=== PATIENT | male | born 1980 | race Caucasian/White ===

== ENCOUNTER 2018-08-16 15:41 | Inpatient (IN) | payer OTHER ==
[~2018-08-16] VITALS: Ht 177.8 cm; Wt 93.4 kg
[2018-08-16 17:37] LABS: BASO # 0.1 10*3/uL (0.0-0.1); BASO % 0.6 % (0.0-1.0); EOS % 0.1 % (1.0-4.0); HEMATOCRIT 45.5 % (42.0-52.0); HEMOGLOBIN 15.1 g/dl (14.0-18.0); LYMPH # 2.1 10*3/uL (1.3-4.4); LYMPH % 17.7 % (27.0-41.0); MEAN CELL VOLUME 92.3 fl (80.0-94.0); MEAN CORPUSCULAR HGB 30.6 pg (27.0-31.0); MEAN CORPUSCULAR HGB CONC 33.2 g/dl (33.0-37.0); MEAN PLATELET VOLUME 10.3 fl (9.6-12.3); MONO # 0.9 10*3/uL (0.1-1.0); NEUT # 8.6 10*3/uL (2.3-7.9); NEUT % 73.4 % (47.0-73.0); PLATELET COUNT AUTOMATED 398 10*3/uL (130-400); RED BLOOD COUNT 4.93 10*6/uL (4.50-5.90); RED CELL DISTRI WIDTH 13.4 % (0-14.5); WHITE BLOOD COUNT 11.7 10*3/uL (4.8-10.8)
[2018-08-16] MEDS ORDERED: OMEPRAZOLE D/R20 MG PO (17:41)
[2018-08-16] MEDS ORDERED: PROAIR HFA8.5 GM INH (17:41)
[2018-08-16] MEDS ORDERED: TAB-A-VITE1 EACH PO (17:41)
[2018-08-16] MEDS ORDERED: VITAMIN D32000 UNIT PO (17:42)
[2018-08-16 17:43] VITALS: BP 155/94
[2018-08-16] MEDS ORDERED: PROBIOTIC1 EACH PO (17:43)
[2018-08-16] MEDS ORDERED: TOPAMAX50 MG PO (17:44)
[2018-08-16 17:51] LABS: ALBUMIN 3.8 gm/dl (3.1-4.5); ALKALINE PHOSPHATASE 71 U/L (45-117); BUN 11 mg/dl (7-24); CHLORIDE 115 mmol/L (98-107); CREATININE 1.36 mg/dL (0.70-1.30); INTERNATIONAL NORM RATIO 1.1 (2.0-3.5); POTASSIUM 3.6 mmol/L (3.5-5.1); SGOT/AST 14 IU/L (3-35); SGPT/ALT 34 U/L (12-78); SODIUM 140 mmol/L (136-145); TOTAL PROTEIN 7.1 gm/dL (6.4-8.2)
[2018-08-16 17:53] LABS: BETA-HCG, QUANT < 1.0 mIU/mL (<1); ETHYL ALCOHOL < 3.0 mg/dl (<3)
[2018-08-16 17:54] LABS: BILIRUBIN NEGATIVE (NEGATIVE); BLOOD TRACE-INTACT (NEGATIVE); CLARITY SL CLOUDY (CLEAR); COLOR YELLOW (YELLOW); GLUCOSE NEGATIVE (NEGATIVE); KETONE NEGATIVE (NEGATIVE); LEUKO ESTERASE NEGATIVE (NEGATIVE); NITRITE NEGATIVE (NEGATIVE); SPECIFIC GRAVITY 1.025 (1.005-1.030); UROBILINOGEN 0.2 E.U./dl (0.2-1.0)
[2018-08-16 18:03] LABS: URINE AMPHETAMINES < 1000 (1000ng/ml); URINE BARBITURATES < 200 (200ng/ml); URINE BENZODIAZEPINES < 200 (200ng/ml); URINE CANNABINOIDS (THC) < 50 (50ng/ml); URINE COCAINE < 300 (300ng/ml); URINE METHADONE < 300 (300ng/ml); URINE OPIATES > 300 (300ng/ml)
[2018-08-16 18:04] LABS: BACTERIA 1+
[2018-08-16 18:05] LABS: URINE PHENCYCLIDINE > 25 (25ng/ml)
[2018-08-16 20:00] VITALS: BP 151/90
[2018-08-17] VITALS: BP 121/78
[2018-08-17 08:00] VITALS: BP 121/75
[2018-08-17 12:00] VITALS: BP 100/67
[2018-08-17 16:00] VITALS: BP 99/54
[2018-08-17 20:00] VITALS: BP 99/46
[2018-08-18] VITALS: BP 122/73
[2018-08-18 08:00] VITALS: BP 106/68
[2018-08-18 16:00] VITALS: BP 152/83
[2018-08-18 20:00] VITALS: BP 138/61
[2018-08-19] VITALS: BP 119/63
[2018-08-19 08:00] VITALS: BP 139/79
[2018-08-19] MEDS ORDERED: ATARAX,VISTARIL50 MG PO (11:22)
[2018-08-19] MEDS ORDERED: ROPINIROLE HYD0.5 MG PO (11:22)
== END 2018-08-19 11:37 | disposition home or self-care (01) | DRG 897 ==
LOC: 4E 15:41
PROVIDERS: Internal Medicine; ADMIT Internal Medicine
DX: F11.23 Opioid dependence with withdrawal (principal); R65.10 Systemic inflammatory response syndrome (SIRS) of non-infectious origin without acute organ dysfunction; D72.810 Lymphocytopenia; E87.8 Other disorders of electrolyte and fluid balance, not elsewhere classified; R73.9 Hyperglycemia, unspecified; E83.51 Hypocalcemia; G89.21 Chronic pain due to trauma; F16.10 Hallucinogen abuse, uncomplicated; E66.3 Overweight; I10 Essential (primary) hypertension; E55.9 Vitamin D deficiency, unspecified; K21.9 Gastro-esophageal reflux disease without esophagitis; G43.909 Migraine, unspecified, not intractable, without status migrainosus; Z82.49 Family history of ischemic heart disease and other diseases of the circulatory system; Z79.899 Other long term (current) drug therapy; Z88.8 Allergy status to other drugs, medicaments and biological substances; Z68.29 Body mass index [BMI] 29.0-29.9, adult

== ENCOUNTER 2018-09-03 00:17 | Emergency (ER) | payer OTHER ==
[~2018-09-03] VITALS: Ht 177.8 cm; Wt 90.7 kg
--- NOTE | ~2018-09-03 | EKG ---
[place], [place] ELECTROCARDIOGRAM REPORT NAME: DEEJAY MARIA UNIT #: [id number] ROOM: DOCTOR: EPIPHANY DRAFT REPORT BIRTHDATE: [birth year] [facility] Test Date: 2018-09-03 Test Time: 00:38:32 Pat Name: DEEJAY MARIA Department: ED Room: 5 Gender: M Head Of Sales Promotion: Anita Piña : 1980 Requested By: BERTRAM CHÁVEZ Order Number: [id number] Reading MD: Chacorta Schulz MD Measurements Intervals [place] Rate: 85 P: 7 VA: 175 QRS: -31 QRSD: 120 T: 87 QT: 381 QTc: 453 Interpretive Statements Sinus rhythm Nonspecific intraventricular conduction delay Consider anterior infarct Baseline wander in lead(s) V2 Electronically Signed On 09-04-2018 9:51:38 PDT by Chacorta Schulz MD CM:EKGRPT:ELECTROCARDIOGRAM REPORT [id number] BERTRAM GUILLORY DRAFT REPORT BERTRAM CHÁVEZ DO
[~2018-09-03 00:17] MED LIST: ATARAX,VISTARIL50 MG PO; OMEPRAZOLE D/R20 MG PO; PROAIR HFA8.5 GM INH; PROBIOTIC1 EACH PO; ROPINIROLE HYD0.5 MG PO; TAB-A-VITE1 EACH PO; TOPAMAX50 MG PO; VITAMIN D32000 UNIT PO
[2018-09-03] MEDS ORDERED: PHENAZOPYRIDIN200 M1 PO (00:46)
[2018-09-03 00:48] LABS: BASO # 0.1 10*3/uL (0.0-0.1); HEMATOCRIT 42.5 % (42.0-52.0); HEMOGLOBIN 13.9 g/dl (14.0-18.0); LYMPH # 4.3 10*3/uL (1.3-4.4); LYMPH % 51.1 % (27.0-41.0); MEAN CELL VOLUME 92.2 fl (80.0-94.0); MEAN CORPUSCULAR HGB 30.2 pg (27.0-31.0); MEAN CORPUSCULAR HGB CONC 32.7 g/dl (33.0-37.0); MEAN PLATELET VOLUME 9.5 fl (9.6-12.3); MONO # 0.4 10*3/uL (0.1-1.0); MONO % 4.2 % (3.0-9.0); NEUT # 3.6 10*3/uL (2.3-7.9); NEUT % 43.3 % (47.0-73.0); PLATELET COUNT AUTOMATED 471 10*3/uL (130-400); RED BLOOD COUNT 4.61 10*6/uL (4.50-5.90); RED CELL DISTRI WIDTH 13.5 % (0-14.5); WHITE BLOOD COUNT 8.4 10*3/uL (4.8-10.8)
[2018-09-03] MEDS ORDERED: PROBIOTIC-10 11 EACH PO (00:48)
[2018-09-03] MEDS ORDERED: SUMATRIPTAN SU100 M1 PO (00:48)
[2018-09-03] MEDS ORDERED: CEFDINIR300 MG PO (00:49)
[2018-09-03] MEDS ORDERED: TAMSULOSIN HCL0.4 MG PO (00:50)
[2018-09-03] MEDS ORDERED: DOXYCYCLINE HY100 M3 PO (00:51)
[2018-09-03] MEDS ORDERED: ASPIRIN ADULT L81 M2 PO (00:53)
[2018-09-03] MEDS ORDERED: IBU800 M1 PO (00:53)
[2018-09-03 00:54] LABS: BILIRUBIN NEGATIVE (NEGATIVE); BLOOD NEGATIVE (NEGATIVE); CLARITY CLEAR (CLEAR); COLOR YELLOW (YELLOW); GLUCOSE NEGATIVE (NEGATIVE); KETONE NEGATIVE (NEGATIVE); LEUKO ESTERASE NEGATIVE (NEGATIVE); NITRITE NEGATIVE (NEGATIVE); SPECIFIC GRAVITY <= 1.005 (1.005-1.030); UROBILINOGEN 0.2 E.U./dl (0.2-1.0)
[2018-09-03] MEDS ORDERED: STOOL SOFTENER100 M3 PO (00:54)
[2018-09-03] MEDS ORDERED: KEFLEX 500 MG E2 CAP PO (00:54)
[2018-09-03 01:05] LABS: ALBUMIN 3.4 gm/dl (3.1-4.5); ALKALINE PHOSPHATASE 71 U/L (45-117); BUN 10 mg/dl (7-24); CHLORIDE 112 mmol/L (98-107); CREATININE 0.92 mg/dL (0.70-1.30); POTASSIUM 3.4 mmol/L (3.5-5.1); SGOT/AST 31 IU/L (3-35); SGPT/ALT 47 U/L (12-78); SODIUM 146 mmol/L (136-145); TOTAL PROTEIN 6.5 gm/dL (6.4-8.2)
[2018-09-03 01:07] LABS: URINE AMPHETAMINES < 1000 (1000ng/ml); URINE BARBITURATES < 200 (200ng/ml); URINE BENZODIAZEPINES < 200 (200ng/ml); URINE CANNABINOIDS (THC) < 50 (50ng/ml); URINE COCAINE < 300 (300ng/ml); URINE METHADONE < 300 (300ng/ml); URINE OPIATES < 300 (300ng/ml)
[2018-09-03 01:07] LABS: ACETAMINOPHEN (TYLENOL) < 5.0 ug/ml (10-30); TROPONIN I < 0.015 ng/ml (<0.045)
[2018-09-03 01:08] LABS: URINE PHENCYCLIDINE < 25 (25ng/ml)
[2018-09-03 01:10] LABS: RBC 0-2 rbc/hpf (0-2); WBC 0-2 wbc/hpf (0-5)
== END 2018-09-03 03:29 | disposition home or self-care (01) ==
LOC: ED 00:17
PROVIDERS: Student in an Organized Health Care Education/Training Program
DX: F10.129 Alcohol abuse with intoxication, unspecified (principal); K21.9 Gastro-esophageal reflux disease without esophagitis; I10 Essential (primary) hypertension; G43.909 Migraine, unspecified, not intractable, without status migrainosus; F11.10 Opioid abuse, uncomplicated; Z87.891 Personal history of nicotine dependence; Z88.6 Allergy status to analgesic agent; Z79.899 Other long term (current) drug therapy; Y90.9 Presence of alcohol in blood, level not specified

== ENCOUNTER 2019-03-14 13:24 | Inpatient (IN) | payer OTHER ==
[~2019-03-14] VITALS: Ht 177.8 cm; Wt 95.0 kg
[~2019-03-14 13:24] MED LIST changes: +ASPIRIN ADULT L81 M2 PO; +CEFDINIR300 MG PO; +DOXYCYCLINE HY100 M3 PO; +IBU800 M1 PO; +KEFLEX 500 MG E2 CAP PO; +PHENAZOPYRIDIN200 M1 PO; +PROBIOTIC-10 11 EACH PO; +STOOL SOFTENER100 M3 PO; +SUMATRIPTAN SU100 M1 PO; +TAMSULOSIN HCL0.4 MG PO
[2019-03-14 14:30] VITALS: BP 154/94
--- NOTE | 2019-03-14 14:30 | NUR ---
A 39, admitted to , under the services of SUNSHINE Kerns DO with a diagnosis of ALCOHOL WITHDRAWL. Chief complaint is WANTS TO DETOX. Patient arrived [place] ambulatory from [place]. Monitor applied. Initial assessment completed. Vital signs taken and recorded. SUNSHINE KERNS DO notified of admission to the unit. Orders received. See assessment for past medical history, medications and allergies. Patient and/or family oriented to unit. [address] visitation policy reviewed. Clothing/patient valuable form completed. JEFRY NEAL
--- NOTE | 2019-03-14 14:38 | NUR ---
PATIENT MEETS [facility]. CIWA=17. PATIENT IS GOING TO FOLLOW BACK UP WITH HIS AA MEETINGS IN HIS AREA. ARPITA MYERS B.A. MATERNITY NURSE
[2019-03-14] MEDS ORDERED: ASPIRIN LITE C325 MG PO (14:53)
[2019-03-14 16:00] VITALS: BP 154/94
[2019-03-14 16:03] LABS: BASO # 0.1 10*3/uL (0.0-0.1); BASO % 1.1 % (0.0-1.0); EOS # 0.1 10*3/uL (0.0-0.4); EOS % 1.2 % (1.0-4.0); HEMATOCRIT 44.6 % (42.0-52.0); HEMOGLOBIN 14.7 g/dl (14.0-18.0); LYMPH # 1.2 10*3/uL (1.3-4.4); LYMPH % 20.2 % (27.0-41.0); MEAN CORPUSCULAR HGB 30.3 pg (27.0-31.0); MONO # 0.5 10*3/uL (0.1-1.0); MONO % 8.1 % (3.0-9.0); NEUT # 3.9 10*3/uL (2.3-7.9); PLATELET COUNT AUTOMATED 222 10*3/uL (130-400); RED BLOOD COUNT 4.85 10*6/uL (4.50-5.90); RED CELL DISTRI WIDTH 14.3 % (0-14.5); WHITE BLOOD COUNT 5.7 10*3/uL (4.8-10.8)
--- NOTE | 2019-03-14 16:09 | NUR ---
MEDICATED WITH IV ATIVAN ORDERED PER PT REQUEST FOR C/O TREMORS.
[2019-03-14 16:20] LABS: ALBUMIN 3.4 gm/dl (3.1-4.5); ALKALINE PHOSPHATASE 103 U/L (45-117); BUN 15 mg/dl (7-24); CHLORIDE 102 mmol/L (98-107); CREATININE 0.78 mg/dL (0.70-1.30); POTASSIUM 3.7 mmol/L (3.5-5.1); SGOT/AST 391 IU/L (3-35); SGPT/ALT 242 U/L (12-78); SODIUM 139 mmol/L (136-145); TOTAL PROTEIN 6.1 gm/dL (6.4-8.2)
[2019-03-14 16:21] LABS: INTERNATIONAL NORM RATIO 1.1 (2.0-3.5)
[2019-03-14 16:26] LABS: ETHYL ALCOHOL < 3.0 mg/dl (<3)
--- NOTE | 2019-03-14 17:00 | NUR ---
MEDICATION EFFECTIVE FOR TREMORS.
[2019-03-14 18:14] LABS: BILIRUBIN NEGATIVE (NEGATIVE); BLOOD NEGATIVE (NEGATIVE); CLARITY CLEAR (CLEAR); COLOR YELLOW (YELLOW); GLUCOSE NEGATIVE (NEGATIVE); KETONE NEGATIVE (NEGATIVE); LEUKO ESTERASE NEGATIVE (NEGATIVE); NITRITE NEGATIVE (NEGATIVE); PH 7.5 (5.0-9.0); SPECIFIC GRAVITY 1.015 (1.005-1.030)
[2019-03-14 18:23] LABS: BACTERIA TRACE; MUCOUS 1+; RBC 0-2 rbc/hpf (0-2)
[2019-03-14 18:24] LABS: URINE AMPHETAMINES < 1000 (1000ng/ml); URINE BARBITURATES < 200 (200ng/ml); URINE BENZODIAZEPINES < 200 (200ng/ml); URINE CANNABINOIDS (THC) < 50 (50ng/ml); URINE COCAINE > 300 (300ng/ml); URINE METHADONE < 300 (300ng/ml); URINE OPIATES < 300 (300ng/ml)
[2019-03-14 18:26] LABS: URINE PHENCYCLIDINE < 25 (25ng/ml)
[2019-03-14 20:00] VITALS: BP 136/60
--- NOTE | 2019-03-14 20:40 | NUR ---
MVI BAG INFUSING PER ORDER. PT DENIES ANY NEW/WORSENING SYMPTOMS. BLANKETS PROVIDED PER REQUEST. WILL MONITOR. CALL LIGHT IN REACH.
[2019-03-15 00:09] VITALS: BP 145/88
--- NOTE | 2019-03-15 00:38 | NUR ---
PT STATES EARLIER MEDICATIONS EFFECTIVE. DENIES ANY OTHER NEEDS AT THIS TIME.
--- NOTE | 2019-03-15 01:43 | NUR ---
PT CALLED RN IN STATING IV LEAKING. IV SITE TO L WRIST IN FACE LEAKING. SITE REMOVED AND DSD APPLIED. NEW 22G IV INITIATED IN R FOREARM PER POLICY. PT TOLERATED WELL. ABOUT 60 CCs LEFT IN MVI BAG. MVI BAG RECONNECTED AND INFUSING PER ORDER. WILL MONITOR. CALL LIGHT IN REACH.
--- NOTE | 2019-03-15 02:17 | NUR ---
MVI BAG COMPLETE AT THIS TIME. PT MEDICATED WITH IV ATIVAN PER PRN ORDER FOR C/O MILD TREMORS AND ANXIETY R/T WITHDRAWAL FROM ALCOHOL. WILL MONITOR. CALL LIGHT LEFT IN REACH.
--- NOTE | 2019-03-15 03:35 | NUR ---
EARLIER MEDICATION APPEARS EFFECTIVE. PT ASLEEP IN BED. NO S/S OF DISTRESS NOTED. WILL MONITOR. CALL LIGHT IN REACH.
--- NOTE | 2019-03-15 06:01 | NUR ---
SCHEDULED LIBRIUM GIVEN PER ORDER. PT DENIES ANY OTHER NEEDS AT THIS TIME.
[2019-03-15 08:00] VITALS: BP 134/84
--- NOTE | 2019-03-15 08:40 | NUR ---
PT RESTING IN BED/ NO DISTRESS NOTED. WILL MONITOR
--- NOTE | 2019-03-15 13:02 | NUR ---
PATIENT'S AFTERCARE REMAINS THE SAME. PATIENT WILL BE FOLLOWING UP WITH HIS AA MEETINGS. ARPITA MYERS B.A. AGRICULTURAL AGENT
[2019-03-15 15:28] VITALS: BP 160/88
--- NOTE | 2019-03-15 19:23 | NUR ---
PATIENT REQUESTED SOMETHING TO HELP WITH HIS MUSCLES CRAMPING/PAIN. ROBAXIN GIVEN. WILL MONITOR AND REASSESS.
[2019-03-15 20:00] VITALS: BP 138/90
--- NOTE | 2019-03-15 22:37 | NUR ---
ROBAXIN EFFECTIVE FOR MUSCLE ACHES.
--- NOTE | 2019-03-15 22:53 | NUR ---
PATIENT VERY RESTLESS, STATED HE WANTED TO TRY TO FALL ASLEEP. ATIVAN AND TRAZADONE GIVEN. WILL MONITOR AND REASSESS.
[2019-03-16] VITALS: BP 131/94
--- NOTE | 2019-03-16 00:07 | NUR ---
VISTARIL FOR ANXIETY AND TRAZODONE FOR SLEEP GIVEN PER PATIENT REQUEST. WILL ASSESS EFFECTIVENESS.
--- NOTE | 2019-03-16 01:00 | NUR ---
VISTARIL AND TRAZODONE EFFECTIVE. PATIENT SLEEPING. NO SIGNS OR SYMPTOMS OF DISCOMFORT. RESPIRATIONS EASY, REGULAR, AND NONLABORED. CALL LIGHT WITHIN REACH. WILL CONTINUE TO MONITOR.
[2019-03-16 08:00] VITALS: BP 114/64
--- NOTE | 2019-03-16 11:23 | NUR ---
PATIENT IS GOING TO FOLLOW UP WITH AA MEETINGS. PATIENT REPORTS THAT HE HAS TRANSPORTION HOME AFTER HE IS DISCHARGED. PATIENT AGREES AND UNDERSTANDS HIS AFTERCARE PLAN. ARPITA MYERS B.A. DRIVING SCHOOL INSTRUCTOR
[2019-03-16 12:00] VITALS: BP 111/70
[2019-03-16 16:00] VITALS: BP 121/66
--- NOTE | 2019-03-16 19:35 | NUR ---
24 HOUR CHART CHECK COMPLETED
[2019-03-16 20:00] VITALS: BP 111/69
--- NOTE | 2019-03-16 20:05 | NUR ---
PATIENT ASSESSMENT COMPLETED AT THIS TIME WITHOUT INCIDENT. PATIENT DENIES ANY CHEST PAIN/PRESSURE, SHORTNESS OF BREATH, OR ANY OTHER NEEDS AT THIS TIME. CALL LIGHT WITHIN REACH WILL CONTINUE TO MONITOR.
[2019-03-17] VITALS: BP 130/72
--- NOTE | 2019-03-17 | NUR ---
PATIENT GIVEN TRAZADONE AT THIS TIME AT HIS REQUEST FOR SLEEP. PATIENT ALERT AND ORIENTED X3 AT THIS TIME.
--- NOTE | 2019-03-17 02:24 | NUR ---
NOTIFIED BY SURFACING MACHINE OPERATOR THAT PATIENT WAS OFF THE MONITOR. UPON ENTERING THE ROOM THIS RN NOTED THE RN CLINICAL RESEARCH WAS LYING ON THE OVERBED TABLE, PATIENT WAS REPOSITIONING HIMSELF IN THE BED AND WHEN ASKED ABOUT PUTTING THE MONITOR BACK ON HE STATED "MY TIME IS UP IN A FEW HOURS AND I'M LEAVING HERE, I CAN'T SLEEP WITH THAT THING ON AND I NEED SOME SLEEP."
--- NOTE | 2019-03-17 02:28 | NUR ---
DR. HERNANDEZ NOTIFIED OF PATIENT REFUSAL TO [employer]AR AIR[employer]FT ELECTRICIAN AND HIS STATEMENT CONCERNING LEAVING TODAY, OKAY TO LEAVE OFF MONITOR AT THIS TIME.
--- NOTE | 2019-03-17 08:20 | NUR ---
PT RESTING IN BED,AROUSES EASILY. SPO2 96% ON RA, DENIES ANY NEEDS AT THIS TIME. CALL LIGHT IN REACH.
[2019-03-17] MEDS ORDERED: ZOFRAN 4 MG ED2 TAB PO (09:24)
[2019-03-17] MEDS ORDERED: ATARAX,VISTARIL50 MG PO (09:24)
--- NOTE | 2019-03-17 10:40 | NUR ---
ROBAXIN 750 MG AND VISTARIL 50 MG GIVEN FOR ANXIETY AND RESTLESS LEGS PRIOR TO D/C.
--- NOTE | 2019-03-17 10:42 | NUR ---
Discharge instructions reviewed with patient/family. Patient receptive and verbalizes understanding. Follow-up care arranged. Written instructions given to patient/family. WINSOME SANDERS
== END 2019-03-17 10:42 | disposition home or self-care (01) | DRG 775 ==
LOC: 4E 13:24
PROVIDERS: Student in an Organized Health Care Education/Training Program; ADMIT Internal Medicine
DX: F10.239 Alcohol dependence with withdrawal, unspecified (principal); F41.9 Anxiety disorder, unspecified; I10 Essential (primary) hypertension; E55.9 Vitamin D deficiency, unspecified; G43.909 Migraine, unspecified, not intractable, without status migrainosus; K21.9 Gastro-esophageal reflux disease without esophagitis; E66.09 Other obesity due to excess calories; G89.29 Other chronic pain; Z68.30 Body mass index [BMI] 30.0-30.9, adult; Z87.891 Personal history of nicotine dependence; Z82.49 Family history of ischemic heart disease and other diseases of the circulatory system; Z88.8 Allergy status to other drugs, medicaments and biological substances; Z79.82 Long term (current) use of aspirin; Z79.899 Other long term (current) drug therapy

== ENCOUNTER 2019-08-15 15:01 | Inpatient (IN) | payer OTHER ==
[~2019-08-15] VITALS: Ht 177.8 cm; Wt 93.9 kg
[~2019-08-15 15:01] MED LIST changes: +ASPIRIN LITE C325 MG PO; +ZOFRAN 4 MG ED2 TAB PO
[2019-08-15 16:00] VITALS: BP 161/98
[2019-08-15 16:16] LABS: BASO # 0.1 10*3/uL (0.0-0.1); BASO % 0.8 % (0.0-1.0); EOS # 0.1 10*3/uL (0.0-0.4); EOS % 1.8 % (1.0-4.0); HEMATOCRIT 43.2 % (42.0-52.0); LYMPH % 12.4 % (27.0-41.0); MEAN CORPUSCULAR HGB CONC 33.3 g/dl (33.0-37.0); MEAN PLATELET VOLUME 9.4 fl (9.6-12.3); MONO # 0.5 10*3/uL (0.1-1.0); MONO % 6.6 % (3.0-9.0); NEUT # 6.1 10*3/uL (2.3-7.9); NEUT % 78.1 % (47.0-73.0); PLATELET COUNT AUTOMATED 203 10*3/uL (130-400); RED CELL DISTRI WIDTH 12.5 % (0-14.5); WHITE BLOOD COUNT 7.9 10*3/uL (4.8-10.8)
[2019-08-15 16:33] LABS: ALBUMIN 3.5 gm/dl (3.1-4.5); ALKALINE PHOSPHATASE 107 U/L (45-117); BUN 14 mg/dl (7-24); CHLORIDE 102 mmol/L (98-107); CREATININE 0.99 mg/dL (0.70-1.30); POTASSIUM 3.3 mmol/L (3.5-5.1); SGOT/AST 486 IU/L (3-35); SGPT/ALT 334 U/L (12-78); SODIUM 137 mmol/L (136-145); TOTAL PROTEIN 6.8 gm/dL (6.4-8.2)
[2019-08-15 16:38] LABS: ETHYL ALCOHOL < 3.0 mg/dl (<3)
[2019-08-15 18:24] LABS: CLARITY CLEAR (CLEAR); COLOR YELLOW (YELLOW)
[2019-08-15 18:26] LABS: BILIRUBIN NEGATIVE (NEGATIVE); BLOOD TRACE-INTACT (NEGATIVE); GLUCOSE NEGATIVE (NEGATIVE); KETONE NEGATIVE (NEGATIVE); LEUKO ESTERASE TRACE (NEGATIVE); NITRITE NEGATIVE (NEGATIVE); SPECIFIC GRAVITY 1.015 (1.005-1.030)
[2019-08-15 18:30] LABS: BACTERIA 1+; URINE AMPHETAMINES < 1000 (1000ng/ml); URINE BARBITURATES < 200 (200ng/ml); URINE BENZODIAZEPINES < 200 (200ng/ml); URINE CANNABINOIDS (THC) < 50 (50ng/ml); URINE COCAINE < 300 (300ng/ml); URINE METHADONE < 300 (300ng/ml); URINE OPIATES < 300 (300ng/ml); WBC 21-30 wbc/hpf (0-5)
[2019-08-15 18:31] LABS: MUCOUS 1+
[2019-08-15 18:32] LABS: URINE PHENCYCLIDINE < 25 (25ng/ml)
[2019-08-15 20:00] VITALS: BP 142/87
[2019-08-16] VITALS: BP 123/86
[2019-08-16 04:00] VITALS: BP 128/80
[2019-08-16 08:00] VITALS: BP 124/78
[2019-08-16 12:00] VITALS: BP 148/90
[2019-08-16 16:00] VITALS: BP 145/82
[2019-08-16 20:00] VITALS: BP 131/88
[2019-08-17] VITALS: BP 124/88; BP 124/93
[2019-08-17 08:00] VITALS: BP 145/93
== END 2019-08-17 13:40 | disposition home or self-care (01) | DRG 775 ==
LOC: 4E 15:01
PROVIDERS: Internal Medicine; ADMIT Family Medicine
DX: F10.239 Alcohol dependence with withdrawal, unspecified (principal); K21.9 Gastro-esophageal reflux disease without esophagitis; G43.909 Migraine, unspecified, not intractable, without status migrainosus; R74.0 Nonspecific elevation of levels of transaminase and lactic acid dehydrogenase [LDH]; E87.6 Hypokalemia; R73.9 Hyperglycemia, unspecified; G89.29 Other chronic pain; I10 Essential (primary) hypertension; Z87.891 Personal history of nicotine dependence; Z82.49 Family history of ischemic heart disease and other diseases of the circulatory system; Z79.899 Other long term (current) drug therapy

== ENCOUNTER 2019-09-24 14:31 | Inpatient (IN) | payer OTHER ==
[~2019-09-24] VITALS: Ht 177.8 cm; Wt 89.4 kg
[2019-09-24 15:35] VITALS: BP 131/96
[2019-09-24 16:32] LABS: BASO # 0.1 10*3/uL (0.0-0.1); BASO % 1.1 % (0.0-1.0); HEMATOCRIT 48.5 % (42.0-52.0); LYMPH # 2.5 10*3/uL (1.3-4.4); LYMPH % 35.4 % (27.0-41.0); MEAN CELL VOLUME 92.9 fl (80.0-94.0); MEAN CORPUSCULAR HGB 31.6 pg (27.0-31.0); MEAN PLATELET VOLUME 9.5 fl (9.6-12.3); MONO # 0.8 10*3/uL (0.1-1.0); MONO % 11.8 % (3.0-9.0); NEUT # 3.6 10*3/uL (2.3-7.9); NEUT % 51.4 % (47.0-73.0); PLATELET COUNT AUTOMATED 340 10*3/uL (130-400); RED BLOOD COUNT 5.22 10*6/uL (4.50-5.90); RED CELL DISTRI WIDTH 13.2 % (0-14.5)
[2019-09-24 16:42] LABS: INTERNATIONAL NORM RATIO 1.1 (2.0-3.5)
[2019-09-24 16:46] LABS: ALBUMIN 3.2 gm/dl (3.1-4.5); ALKALINE PHOSPHATASE 129 U/L (45-117); BUN 20 mg/dl (7-24); CHLORIDE 91 mmol/L (98-107); CREATININE 1.47 mg/dL (0.70-1.30); POTASSIUM 3.2 mmol/L (3.5-5.1); SGOT/AST 428 IU/L (3-35); SGPT/ALT 278 U/L (12-78); SODIUM 133 mmol/L (136-145); TOTAL PROTEIN 6.9 gm/dL (6.4-8.2)
[2019-09-24 17:12] LABS: BILIRUBIN 1+ (NEGATIVE); BLOOD NEGATIVE (NEGATIVE); CLARITY CLOUDY (CLEAR); COLOR YELLOW (YELLOW); GLUCOSE NEGATIVE (NEGATIVE); KETONE TRACE (NEGATIVE); LEUKO ESTERASE TRACE (NEGATIVE); NITRITE NEGATIVE (NEGATIVE); SPECIFIC GRAVITY 1.015 (1.005-1.030)
[2019-09-24] MEDS ORDERED: LYRICA50 M1 PO (17:13)
[2019-09-24 17:21] LABS: BACTERIA 2+; FINE GRANULAR CAST TNTC; HYALINE CAST TNTC; MUCOUS 1+; WBC 21-30 wbc/hpf (0-5)
[2019-09-24 17:28] LABS: URINE AMPHETAMINES < 1000 (1000ng/ml); URINE BARBITURATES < 200 (200ng/ml); URINE BENZODIAZEPINES < 200 (200ng/ml); URINE CANNABINOIDS (THC) < 50 (50ng/ml); URINE COCAINE < 300 (300ng/ml); URINE METHADONE < 300 (300ng/ml); URINE OPIATES < 300 (300ng/ml)
[2019-09-24 17:30] LABS: URINE PHENCYCLIDINE < 25 (25ng/ml)
[2019-09-24 20:00] VITALS: BP 116/79
[2019-09-24 21:00] VITALS: BP 116/79
[2019-09-25] VITALS: BP 113/83
[2019-09-25 08:00] VITALS: BP 120/88
[2019-09-25 08:08] LABS: ALBUMIN 3.4 gm/dl (3.1-4.5); ALKALINE PHOSPHATASE 119 U/L (45-117); BUN 21 mg/dl (7-24); CHLORIDE 96 mmol/L (98-107); CREATININE 1.34 mg/dL (0.70-1.30); POTASSIUM 3.4 mmol/L (3.5-5.1); SGOT/AST 467 IU/L (3-35); SGPT/ALT 277 U/L (12-78); SODIUM 135 mmol/L (136-145); TOTAL PROTEIN 6.8 gm/dL (6.4-8.2)
[2019-09-25 12:00] VITALS: BP 120/77
[2019-09-25 16:00] VITALS: BP 126/78
[2019-09-25 20:00] VITALS: BP 136/99
[2019-09-26] VITALS: BP 136/72
[2019-09-26 08:00] VITALS: BP 128/78
[2019-09-26 08:07] LABS: ALBUMIN 2.8 gm/dl (3.1-4.5); ALKALINE PHOSPHATASE 96 U/L (45-117); BUN 13 mg/dl (7-24); CHLORIDE 113 mmol/L (98-107); CREATININE 0.93 mg/dL (0.70-1.30); POTASSIUM 4.3 mmol/L (3.5-5.1); SGOT/AST 384 IU/L (3-35); SGPT/ALT 215 U/L (12-78); SODIUM 141 mmol/L (136-145); TOTAL PROTEIN 5.8 gm/dL (6.4-8.2)
[2019-09-26 12:00] VITALS: BP 122/86
[2019-09-26 16:00] VITALS: BP 130/90
[2019-09-26 20:00] VITALS: BP 116/73
[2019-09-27] VITALS: BP 131/92
[2019-09-27 08:00] VITALS: BP 139/91
== END 2019-09-27 12:10 | disposition home or self-care (01) | DRG 775 ==
LOC: 4E 14:31
PROVIDERS: Registered Nurse; ADMIT Internal Medicine
DX: F10.230 Alcohol dependence with withdrawal, uncomplicated (principal); K21.9 Gastro-esophageal reflux disease without esophagitis; G43.909 Migraine, unspecified, not intractable, without status migrainosus; B19.20 Unspecified viral hepatitis C without hepatic coma; R65.11 Systemic inflammatory response syndrome (SIRS) of non-infectious origin with acute organ dysfunction; N17.0 Acute kidney failure with tubular necrosis; E87.6 Hypokalemia; G40.909 Epilepsy, unspecified, not intractable, without status epilepticus; G89.29 Other chronic pain; E86.0 Dehydration; K70.10 Alcoholic hepatitis without ascites; E87.1 Hypo-osmolality and hyponatremia; Z87.891 Personal history of nicotine dependence; Z79.899 Other long term (current) drug therapy; Z88.8 Allergy status to other drugs, medicaments and biological substances; Z82.49 Family history of ischemic heart disease and other diseases of the circulatory system